=== PATIENT | male | born 2005 | race Hispanic/Latino ===

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

== ENCOUNTER 2025-11-27 20:14 | Emergency (ER) | payer SELFPAY ==
[~2025-11-27] VITALS: Ht 185.4 cm; Wt 86.2 kg
--- NOTE | 2025-11-27 20:17 | NUR ---
EKG PERFORMED IN TRIAGE AND GIVEN TO DR ALFARO ALONG WITH REPORT
--- NOTE | 2025-11-27 20:19 | ERN ---
General Chief Complaint: Chest Pain Stated Complaint: PALPITATIONS, CHEST PAIN Time Seen by MD: 20:16 Source: patient History of Present Illness Initial Comments Patient is a 20-year-old male coming in complaining of racing heart and chest discomfort. Per patient this has been ongoing for greater than two weeks. He does state that he smokes marijuana but no other drugs. Chest discomfort isn't associated with physical activity Allergies: Coded Allergies: No Known Drug Allergies (Unverified Allergy, Unknown, 08/31/21) Past Medical History Past Medical History: Asthma Medical History Other: ADHD Past Surgical History: None Social History Social History: Drugs ROS Dictation CONSTITUTIONAL: No chills, no fever, no weakness, no diaphoresis, no malaise. HEAD/FACE: No signs of trauma. EENT: No eye pain, no blurred vision, no tearing, no double vision, no ear pain, no ear discharge, no nose pain, no nasal congestion, no throat pain, no throat swelling, no mouth pain. RESPIRATORY: No cough, no orthopnea, no SOB, no stridor, no wheezing. CARDIOVASCULAR: chest pain, no edema, palpitations, no syncope. GASTROINTESTINAL/ABDOMINAL: No abdominal pain, no constipation, no diarrhea, no nausea, no vomiting. GENITOURINARY: No abnormal discharge, no dysuria, no frequent urination, no hematuria. No complaints of pain in the genitals. MUSCULOSKELETAL: No back pain, no gout, no joint pain, no joint swelling, no muscle pain, no muscle stiffness, no neck pain. INTEGUMENTARY: No change in color, no change in hair/nails, no dryness, no lesion, no lumps, no rash. NEUROLOGICAL/PSYCH: No anxiety, not depressed, no emotional problem, no headache, no numbness, no pre-existing deficit, no history of seizures, no tremors, no weakness. HEMATOLOGIC/LYMPHATIC: Not anemic, no history of blood clots, no apparent bleeding, no bruising, glands not swollen. All Systems Negative, Except as Noted. Physical Exam Physical Exam Dictation VITAL SIGNS: Reviewed. GENERAL APPEARANCE: Alert, oriented x3, no acute distress, obese. HEAD AND FACE: Non-traumatic. EYES: PERRL, pink conjunctivas, eyelid no trauma, anterior chamber clear. EARS: Pinnas intact and no signs of trauma or erythema. Ear canals clear and n o discharge. TMs no erythema. NOSE: No discharge, no bleeding. OROPHARYNX: Mouth normal, teeth no caries, tongue pink. Pharynx clear, no erythema. Tonsils no exudates, no abscesses noted. Mucous membrane moist. NECK: Supple, non-tender, no thyromegaly, no masses, no JVD, no bruits. BREAST: Deferred. CHEST: No tenderness, no crepitus, no paradoxical movement, no retractions. LUNGS: Clear, well-ventilated, symmetric, no rales, no wheezing, no rhonchi, no stridor, good breath sounds bilaterally. HEART: Regular rate, regular rhythm, no murmur, no gallops. VASCULAR: No peripheral edema. ABDOMEN: Soft, positive bowel sounds, nondistended, no guarding, nontender, no rebound, no masses no hepatomegaly, no splenomegaly, no Xavier's sign, no hernias. RECTAL: Deferred. GENITAL: Deferred. NEUROLOGICAL: Normal speech, gross motor function intact, gross sensory function intact. MUSCULOSKELETAL: Neck nontender, full range of motion, back nontender, full range of motion. EXTREMITIES: Nontender, full range of motion. SKIN: Color pink, dry, no turgor, no rash, no lacerations, no abrasions, no contusions. LYMPHATICS: Deferred. Results Laboratory and Microbiology Lab and Micro Result Laboratory Tests Test 11/27/25 20:27 11/27/25 20:33 White Blood Count 12.9 K/uL (4.8-10.8) H Red Blood Count 6.05 MIL/uL (4.50-6.20) Hemoglobin 17.7 g/dL (14.0-18.0) Hematocrit 51.5 % (42-54) Mean Corpuscular Volume 85.1 fL (80-100) Mean Corpuscular Hemoglobin 29.3 pg (27.0-33.0) Mean Corpuscular Hemoglobin Concent 34.4 g/dL (32.0-36.0) Red Cell Distribution Width 11.9 % (11.0-15.5) Platelet Count 300 K/uL (130-400) Mean Platelet Volume 9.7 fL (7.5-10.5) Immature Granulocyte % (Auto) 0.3 % (0-1) Neutrophils (%) (Auto) 68.6 % (40.0-77.0) Lymphocytes (%) (Auto) 21.9 % (21.0-51.0) Monocytes (%) (Auto) 5.8 % (3.0-13.0) Eosinophils (%) (Auto) 3.0 % (0.0-8.0) Basophils (%) (Auto) 0.4 % (0.0-5.0) Neutrophils # (Auto) 8.9 K/uL (1.8-7.7) H Lymphocytes # (Auto) 2.8 K/uL (1.0-4.8) Monocytes # (Auto) 0.8 K/uL (0.1-1.0) Eosinophils # (Auto) 0.39 K/uL (0.00-0.70) Basophils # (Auto) 0.05 K/uL (0.00-0.20) Absolute Immature Granulocyte (auto 0.04 K/uL (0-1) Nucleated Red Blood Cells 0.0 % (0.0-0.19) Sodium Level 141 mmol/L (136-145) Potassium Level 3.7 mmol/L (3.5-5.1) Chloride Level 101 mmol/L (101-111) Carbon Dioxide Level 30 mmol/L (21-32) Blood Urea Nitrogen 21 mg/dL (7-18) H Creatinine 1.2 mg/dL (0.5-1.3) Glomerular Filtration Rate Calc 89 mL/min (>90) Random Glucose 104 mg/dL (70-105) Total Calcium 9.6 mg/dL (8.5-10.1) Total Creatine Kinase 74 U/L (21-232) Troponin I High Sensitivity 4 ng/L (4-75) Urine Color LIGHT-YELLOW (YELLOW) Urine Appearance CLEAR (CLEAR) Urine pH 5.5 (5.0-8.0) Urine Specific [place] 1.025 (1.001-1.031) Urine Protein NEGATIVE mg/dL (NEGATIVE) Urine Glucose (UA) NEGATIVE mg/dL (NEGATIVE) Urine Ketones NEGATIVE mg/dL (NEGATIVE) Urine Occult Blood +- (TRACE) (NEGATIVE) H Urine Nitrate NEGATIVE (NEGATIVE) Urine Bilirubin NEGATIVE mg/dL (NEGATIVE) Urine Urobilinogen 0.2 mg/dL (0.2-1.0) Urine Leukocyte Esterase NEGATIVE [place]/uL Urine RBC 2-5 /HPF (0-1) H Urine WBC 0-1 /HPF (0-1) Urine Squamous Epithelial Cells RARE /HPF (0-2) Urine Bacteria None /HPF (None Seen) Urine Opiates Screen NEGATIVE (NEGATIVE) Urine Barbiturates Screen NEGATIVE (NEGATIVE) Urine Phencyclidine Screen NEGATIVE (NEGATIVE) Urine Amphetamines Screen NEGATIVE (NEGATIVE) Urine Benzodiazepines Screen NEGATIVE (NEGATIVE) Urine Cocaine Screen NEGATIVE (NEGATIVE) Urine Marijuana (THC) Screen POSITIVE (NEGATIVE) H Labs Reviewed?: Yes EKG/XRAY/US/CT/MRI EKG Comment 11/27/2025 time 8:11 p.m. Ventricular rate 112 Sinus tachycardia [place] [address] wave elevation or depression X-RAY Comment Chest x-ray-NAD MDM MDM: Differential diagnosis: Cannabis abuse, dehydration, anxiety Rationale: Tests considered and ordered secondary to shared decision making include: Previous outside records reviewed: Old ER visits. Risk of complication and/or morbidity or mortality of patient management: None Medications-Per medication reconciliation Need for hospitalization: Patient does not meet criteria for hospitalization. Need for emergency major/minor surgery: No In his is a 20-year-old male coming in complaining of racing heart and chest discomfort. Per patient he had stopped smoking marijuana for several months and then recently started smoking at again. Laboratory workup which includes cardiac workup negative for any acute findings. Patient was hydrated with IV fluids states he feels better. Patient will be discharged in stable condition I did mental health counselor him on drug avoidance in order to avoid anxiety. ED Course Orders Procedure Category Date Status Time Cbc With Differential LAB 11/27/25 Complete 20:19 Chest 1vw RAD 11/27/25 Taken 20:19 12 Lead Ekg Tracing- EKG 11/27/25 Logged Technical 20:19 0.9%Nacl 1000ml (Ns PHA 11/27/25 Complete 1000ml) 20:30 Creatine Kinase, Total LAB 11/27/25 Complete 20:19 Troponin I High LAB 11/27/25 Complete Sensitivity 20:19 Urinalysis Profile LAB 11/27/25 Complete 20:19 Basic Metabolic Panel LAB 11/27/25 Complete 20:19 Drug Screen Urine LAB 11/27/25 Complete 20:19 Current Medications Medications (Trade) Dose Ordered Sig/Fran Route PRN Reason Start Time Stop Time Status Last Admin Dose Admin Sodium Chloride 1,000 ml @ 0 mls/hr ONCE ONCE IV 11/27/25 20:30 11/27/25 20:31 DC 11/27/25 20:31 Vital Signs Date Time Temp Pulse Resp B/P (MAP) Pulse Ox O2 Delivery O2 Flow Rate FiO2 11/27/25 20:55 82 18 121/71 98 Room Air* 0 21 11/27/25 20:36 97.2 108 14 137/68 100 Room Air* 0 21 11/27/25 20:15 97.0 109 20 154/76 100 Room Air DX & DISP Disposition: Discharge Departure Impression: Primary Impression: Cannabis abuse Additional Impressions: Dehydration, Anxiety Condition: Stable Additional Instructions: You have been reviewed in the emergency department at [facility] after presenting with chest pain. After considering your history, your risk factors, your EKG and your blood test troponins, have been found to be at very low risk less than (1 in 100) of having a major adverse cardiac event (like heart attack) in the near future. In the " low risk" group, the risks of doing further tests and treatment as the inpatient outweighs the benefits. In many patients in the low risk group for the test of any sort or unnecessary, however he should discuss this further with his general practitioner who will understand the medical and personal backgrounds better. Because we have never declared you" no risk" we would suggest. 1 returning for medical review if you have further episodes of chest pain/arm pain or other concerning symptoms like dizziness, collapse, palpitations or shortness of breath. 2. Following up with your local doctor who will consider the need for further testing and will also ensure that any modifiable risk factors you may have for heart disease are optimally managed. Patient will be discharged in stable condition at the moment discharge patient states , no chest pain Referrals: SHARMIN HOLLIS MD (PCP) Time of Disposition: 21:02 JAYCE ALFARO MD Nov 27, 2025 20:19
--- NOTE | 2025-11-27 20:24 | NUR ---
ASKED PT ABOUT PMH OF ADHD, STATES HE DOES NOT TAKE STIMULANTS, LAST DOSE WAS " YEARS" AGO
[2025-11-27] MEDS: 0.9%NACL 1000ML 1,000 ML IV ONE (20:31)
[2025-11-27 20:34] LABS: IMMATURE GRANULOCYTE ABSOLUTE 0.04 K/uL (0-1); NUCLEATED RED BLOOD CELLS 0.0 % (0.0-0.19); PLATELET COUNT (AUTO) 300 K/uL (130-400); RED BLOOD CELL COUNT(AUTO) 6.05 MIL/uL (4.50-6.20); RED CELL DISTRIBUTION WIDTH 11.9 % (11.0-15.5); WHITE BLOOD COUNT (AUTO) 12.9 K/uL (4.8-10.8)
[2025-11-27 20:40] LABS: ADD UA MICROSCOPIC YES; APPEARANCE,URINE CLEAR (CLEAR); GLUCOSE, URINE (UA) NEGATIVE (NEGATIVE); LEUKOCYTE ESTERASE ,URINE NEGATIVE Leu/uL (NEGATIVE); NITRATE,URINE NEGATIVE (NEGATIVE); OCCULT BLOOD,URINE +- (TRACE) (NEGATIVE)
[2025-11-27 20:41] LABS: SQUAMOUS EPITHELIAL CELL,UR RARE /HPF (0-2)
[2025-11-27 20:45] LABS: CREATININE 1.2 mg/dL (0.5-1.3); GLOMERULAR FILTR. RATE CALC 89.0 mL/min (>90); GLUCOSE,RANDOM 104.0 mg/dL (70-105); SODIUM SERUM 141.0 mmol/L (136-145); UREA NITROGEN, BLOOD 21.0 mg/dL (7-18)
[2025-11-27 20:47] LABS: AMPHET/METH SCREEN,URINE NEGATIVE (NEGATIVE); BARBITURATE SCREEN, URINE NEGATIVE (NEGATIVE); CANNABINOID SCREEN,URINE POSITIVE (NEGATIVE); COCAINE SCREEN,URINE NEGATIVE (NEGATIVE)
[2025-11-27 20:50] LABS: CREATINE KINASE, TOTAL 74.0 U/L (21-232)
[2025-11-27 21:25] VITALS: BP 114/65; PULSE 76; RESP 16; TEMP 97.5; O2SAT 100
--- NOTE | 2025-11-27 22:23 | HMCIMG ---
EXAM: X-Ray Chest, 1 view. CLINICAL HISTORY: Palpitations, chest pain. COMPARISON: None. FINDINGS: The lungs show no infiltrate or other acute findings. No pleural effusion or pneumothorax. The cardiomediastinal silhouette is within normal limits. No acute osseous abnormality. IMPRESSION: No acute cardiopulmonary pathology is evident. /[place]
--- NOTE | 2025-11-28 08:24 | EKG ---
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
== END 2025-11-27 21:27 | disposition home or self-care (01) ==
LOC: EDH 20:14
DX: F12.10 Cannabis abuse, uncomplicated (principal); E86.0 Dehydration; F41.9 Anxiety disorder, unspecified; R00.2 Palpitations; R07.89 Other chest pain; J45.909 Unspecified asthma, uncomplicated; F90.9 Attention-deficit hyperactivity disorder, unspecified type
CPT/HCPCS: 99285; 96360; 71045; 82550; 84484; 80048; 80305; 85025; 36415; 93005; 81001; J7030